=== PATIENT | male | born 1980 | race Caucasian/White ===

== ENCOUNTER 2019-02-21 10:20 | Inpatient (IN) | payer MEDICAID ==
[~2019-02-21] VITALS: Ht 170.2 cm; Wt 57.6 kg
[2019-02-21] MEDS ORDERED: PROZAC (10:27)
[2019-02-21] MEDS ORDERED: QUET50TA5 PO (10:27)
[2019-02-21] MEDS ORDERED: SODIUM CHLORIDE 0.9% 1,000ML IVBOLUS ONE (10:30)
[2019-02-21] MEDS ORDERED: MECLIZINE CHEWABLE 25 MG TAB PO ONE (10:30)
[2019-02-21] MEDS ORDERED: THIAMINE 200 MG in SODIUM CHLORIDE 0.9% 50 ML IV ONE (10:30)
[2019-02-21] MEDS ORDERED: SODIUM CHLORIDE FLUSH 10ML SYR IVF ONE (10:30)
--- NOTE | 2019-02-21 10:31 | NUR ---
PT BIB [facility] FOR "VISUAL CHANGES." PER PT VISUAL CHANGES NOTED YESTERDAY- DIFFICULTY WITH SEEING STRAIGHT AHEAD. NYSTAGMUS AND JAUNDICE NOTED ON PHYSICAL ASSESSMENT. PT STATES HE DRINKS EVERY ONCE IN A WHILE AND BINGE DRINKS WHEN HE DOES. PT STATES HE FELL TWICE YESTERDAY. PT UNSTEADY ON HIS FEET. THIS RN INSTRUCTS PT TO CALL WHEN NEEDING TO AMBULATE. LAST DRINK WAS 2 DAYS AGO- WAS 4-5 DRINKS. PT HAS JAUNDICED SKIN. PT LINDA RESTING ON GURNEY. HAS BEEN SEEN AND ASSESSED BY MD. CONNECTED TO MONITOR. TACHYCARDIC. THIS RN WILL START PIV AND MEDICATE ORDERED.
[2019-02-21] MEDS ORDERED: MECLIZINE CHEWABLE 25 MG TAB ONE (10:42)
--- NOTE | 2019-02-21 10:57 | NUR ---
PIV STARTED. PT MEDICATED PER EMAR. GOING TO CT NOW.
--- NOTE | 2019-02-21 10:58 | NUR ---
PT AWARE OF NEED FOR UA. STATES HE IS UNABLE TO GO AT THIS TIME BUT WILL ATTEMPT TO WHEN HE IS ABLE. Addendum: 02/21/19 at 1100 by DOMINGO PT GOING TO MRI, NOT CT.
[2019-02-21 11:19] LABS: ALANINE AMINOTRANSFERASE 108 U/L (12-78); ALBUMIN 3.1 g/dL (3.4-5.0); ANION GAP 17 mmol/L (5-15); CALCIUM 9.6 mg/dL (8.5-10.1); CHLORIDE 87 mmol/L (98-107); CREATININE 0.94 mg/dL (0.7-1.3)
[2019-02-21 11:22] LABS: ALKALINE PHOSPHATASE 366 U/L (45-117); BILIRUBIN,TOTAL 10.7 mg/dL (0.2-1.0); TOTAL PROTEIN 7.7 g/dL (6.4-8.2)
[2019-02-21 11:24] LABS: BASOPHILS % (AUTO) 0 % (0-1); EOSINOPHILS # (AUTO) 0.06 x10^3/uL (0-0.4); EOSINOPHILS % (AUTO) 1 % (1-7); LYMPHOCYTES # (AUTO) 0.83 x10^3/uL (1-3.4); LYMPHOCYTES % (AUTO) 12 % (22-44); MD SCAN; MEAN CORPUSCULAR HEMOGLOBIN 37.8 pg (27.5-34.5); MEAN CORPUSCULAR HGB CONC 34.1 g/dL (33.2-36.2); MEAN CORPUSCULAR VOLUME 110.7 fL (81-97); MEAN PLATELET VOLUME 9.6 fL (7.4-10.4); MONOCYTES # (AUTO) 0.04 x10^3/uL (0.2-0.8); MONOCYTES % (AUTO) 1 % (2-9); NEUTROPHILS # (AUTO) 5.94 x10^3/uL (1.8-6.8); NEUTROPHILS % (AUTO) 86 % (42-75); PLATELET COUNT 77 x10^3/uL (130-400); RED BLOOD COUNT 3.72 x10^6/uL (4.38-5.82); RED CELL DISTRIBUTION WIDTH 13.5 % (9.4-14.8)
[2019-02-21] MEDS ORDERED: GADOTERATE 7.5 MMOL/15 ML SYR ONE (11:25)
[2019-02-21] MEDS ORDERED: POTASSIUM CHLORIDE 20 MEQ TAB.ER.PRT PO ONE (11:30)
[2019-02-21] MEDS ORDERED: POTASSIUM CHLORIDE 40 MEQ in SODIUM CHLORIDE 0.9% 500 ML IV ONE (11:32)
--- NOTE | 2019-02-21 11:38 | NUR ---
PT BACK FROM MRI. PT MEDICATED PER EMAR. RESTING ON GURNEY. NADN. VSS. AWARE OF POC RE: ADMISSION.
[2019-02-21] MEDS ORDERED: POTASSIUM CHLORIDE 20 MEQ TAB.ER.PRT ONE ×2 (11:42→11:56)
--- NOTE | 2019-02-21 12:10 | NUR ---
PT MEDICATED PER MAR. PT EXPRESSES NO WANTS OR NEEDS AT THIS TIME. FAMILY AT BEDSIDE.
--- NOTE | 2019-02-21 12:34 | NUR ---
PT RESTING ON GURFIOR. VSS. NADN. MEDICATED PER EMAR. DENIES NEEDS AT THIS TIME.
[2019-02-21] MEDS ORDERED: hydrALAzine 20 MG/ML, 1ML IVPush PRN (13:00)
[2019-02-21] MEDS ORDERED: OXYcodone IR 5MG TABLET PO PRN (13:00)
[2019-02-21] MEDS ORDERED: ONDANSETRON ODT 4 MG PO PRN (13:00)
[2019-02-21] MEDS ORDERED: morphine SULFATE 10 MG/ML, 1ML IVPush PRN (13:00)
[2019-02-21] MEDS ORDERED: LORazepam 2 MG/ML, 1ML IV PRN ×4 (13:00)
[2019-02-21] MEDS ORDERED: LORazepam 1MG TABLET PO PRN ×4 (13:00)
[2019-02-21] MEDS ORDERED: PROMETHAZINE 25 MG/ML, 1ML IM PRN (13:00)
[2019-02-21] MEDS ORDERED: ONDANSETRON 2MG/ML, 2ML IVPush PRN (13:00)
[2019-02-21] MEDS ORDERED: CYCLOBENZAPRINE 10 MG TABLET PO PRN (13:00)
[2019-02-21] MEDS: NICOTINE 14MG/24 HR PATCH.TD24 TD SCH (13:00)
--- NOTE | 2019-02-21 13:13 | NUR ---
PT RESTING ON GURCOWDEN. DENIES NEEDS. UA COLLECTED. VSS.
[2019-02-21] MEDS ORDERED: DEXTROSE 5% IVPB ONE (13:30)
[2019-02-21] MEDS ORDERED: THIAMINE IVPB ONE (13:30)
[2019-02-21 13:31] LABS: AMPHETAMINE SCREEN, URINE Negative (Negative); BARBITURATE SCREEN, URINE Negative (Negative); BENZODIAZEPINE SCREEN, URINE Negative (Negative); CANNABINOID SCREEN, URINE Negative (Negative); COCAINE SCREEN, URINE Negative (Negative); METHADONE SCREEN, URINE Negative (Negative); OPIATE SCREEN, URINE Negative (Negative)
--- NOTE | 2019-02-21 13:38 | NUR ---
REPORT GIVEN TO RASHMI ACOSTA.
[2019-02-21 14:43] VITALS: BP 109/72
[2019-02-21] MEDS ORDERED: FOLI-17 PO (15:06)
[2019-02-21] MEDS ORDERED: THIA500T PO (15:06)
[2019-02-21] MEDS ORDERED: MAGNESIUM SULFATE PMX 2GM/50ML 50 ML IV ONE (18:00)
[2019-02-21] MEDS: NEUTRA PHOS K 250 MG TABLET PO SCH ×3 (18:27→21:00)
[2019-02-21] MEDS: LORazepam 0.5MG TABLET PO PRN (18:27)
[2019-02-21] MEDS: HEPARIN 5,000 UNITS/ML, 1ML SQ SCH (18:27)
[2019-02-21] MEDS: LORazepam 2 MG/ML, 1ML IV PRN ×2 (19:48→20:52)
[2019-02-21 19:58] VITALS: BP 111/74
[2019-02-21 20:55] VITALS: BP 117/73
[2019-02-21] MEDS: DEXTROSE 5% IV SCH (21:11)
[2019-02-21] MEDS: THIAMINE IV SCH (21:11)
[2019-02-21] MEDS ORDERED: CHLORDIAZEPOXIDE 25 MG CAPSULE PO PRN (22:00)
[2019-02-22 00:44] VITALS: BP 117/75
[2019-02-22] MEDS: LORazepam 2 MG/ML, 1ML IV PRN ×2 (00:48→05:47)
[2019-02-22] MEDS: HEPARIN 5,000 UNITS/ML, 1ML SQ SCH ×3 (02:08→19:10)
[2019-02-22] MEDS: FOLIC ACID IV SCH (02:08)
[2019-02-22] MEDS: MAGNESIUM SULFATE IV SCH (02:08)
[2019-02-22] MEDS: [UNRECOGNIZED DRUG - OTHER] IV SCH (02:08)
[2019-02-22] MEDS: POTASSIUM CHLORIDE IV SCH (02:08)
[2019-02-22 04:08] VITALS: BP 112/79
[2019-02-22] MEDS: THIAMINE IV SCH ×3 (04:38→21:14)
[2019-02-22] MEDS: DEXTROSE 5% IV SCH ×3 (04:38→21:14)
[2019-02-22 04:57] LABS: INTERNATIONAL NORMALIZED RATIO 1.29 (0.93-1.1); PROTHROMBIN TIME 13.4 Seconds (9.6-11.5)
[2019-02-22 05:03] LABS: ALBUMIN 2.2 g/dL (3.4-5.0); ANION GAP 9 mmol/L (5-15); CALCIUM 8.3 mg/dL (8.5-10.1); CHLORIDE 99 mmol/L (98-107)
[2019-02-22 05:09] LABS: ALANINE AMINOTRANSFERASE 76 U/L (12-78); ALKALINE PHOSPHATASE 233 U/L (45-117); BILIRUBIN,TOTAL 11.1 mg/dL (0.2-1.0); CREATININE 0.48 mg/dL (0.7-1.3); TOTAL PROTEIN 5.8 g/dL (6.4-8.2)
[2019-02-22 05:28] LABS: MEAN CORPUSCULAR HEMOGLOBIN 37.3 pg (27.5-34.5); MEAN CORPUSCULAR HGB CONC 34.4 g/dL (33.2-36.2); MEAN CORPUSCULAR VOLUME 108.5 fL (81-97); PLATELET COUNT 79 x10^3/uL (130-400); RED BLOOD COUNT 3.03 x10^6/uL (4.38-5.82); RED CELL DISTRIBUTION WIDTH 13.5 % (9.4-14.8)
[2019-02-22 06:07] LABS: MD YES
[2019-02-22 06:14] LABS: BAND#(MANUAL) 0.13 x10^3/uL; BANDS%(MANUAL) 2 % (0-7); EOS#(MANUAL) 0.26 x10^3/uL (0.0-0.4); EOS% (MANUAL) 4 % (1-7); LYMPHS% (MANUAL) 25 % (22-44); MONOS#(MANUAL) 0.13 x10^3/uL (0.3-2.7); MONOS% (MANUAL) 2 % (2-9); SEG#(MANUAL) 4.29 x10^3/uL (1.8-6.8); SEGS% (MANUAL) 67 % (42-75)
[2019-02-22 06:15] LABS: <PLATELET ESTIMATE> DECREASED; <PLT MORPHOLOGY> NORMAL PLT MORPH; POLYCHROMASIA 1+
[2019-02-22 06:55] VITALS: BP 114/77
[2019-02-22] MEDS ORDERED: MAGNESIUM SULFATE PMX 2GM/50ML 50 ML IV ONE (08:00)
[2019-02-22] MEDS: NEUTRA PHOS K 250 MG TABLET PO SCH ×2 (08:45→21:15)
[2019-02-22] MEDS: CALCIUM CARBONATE 500 MG TAB.CHEW PO SCH ×2 (08:45→21:15)
[2019-02-22] MEDS: MULTIVITS,STRESS FORMULA 1 TABLET PO SCH (08:45)
[2019-02-22] MEDS: ASCORBIC ACID 500 MG TABLET PO SCH ×2 (08:50→18:16)
[2019-02-22] MEDS: NICOTINE 14MG/24 HR PATCH.TD24 TD SCH (13:00)
[2019-02-22 13:48] VITALS: BP 118/81
[2019-02-22] MEDS ORDERED: CHOLECALCIFEROL 400 UNITS/ML ORAL SOL PO SCH (16:30)
[2019-02-22 19:46] VITALS: BP 129/66
[2019-02-23] MEDS: POTASSIUM CHLORIDE IV SCH (01:00)
[2019-02-23] MEDS: FOLIC ACID IV SCH (01:00)
[2019-02-23] MEDS: MAGNESIUM SULFATE IV SCH (01:00)
[2019-02-23] MEDS: [UNRECOGNIZED DRUG - OTHER] IV SCH (01:00)
[2019-02-23] MEDS: LORazepam 0.5MG TABLET PO PRN (01:16)
[2019-02-23 02:58] VITALS: BP 110/72
[2019-02-23] MEDS: HEPARIN 5,000 UNITS/ML, 1ML SQ SCH ×3 (02:59→19:35)
[2019-02-23] MEDS: DEXTROSE 5% IV SCH ×3 (05:23→22:02)
[2019-02-23] MEDS: THIAMINE IV SCH ×3 (05:23→22:02)
[2019-02-23 06:01] LABS: ALBUMIN 2.2 g/dL (3.4-5.0); ANION GAP 10 mmol/L (5-15); CALCIUM 8.3 mg/dL (8.5-10.1); CHLORIDE 99 mmol/L (98-107)
[2019-02-23 06:02] LABS: CREATININE 0.48 mg/dL (0.7-1.3)
[2019-02-23 06:12] LABS: BASOPHILS # (AUTO) 0.07 x10^3/uL (0-0.1); BASOPHILS % (AUTO) 1 % (0-1); EOSINOPHILS # (AUTO) 0.28 x10^3/uL (0-0.4); EOSINOPHILS % (AUTO) 3 % (1-7); LYMPHOCYTES # (AUTO) 2.22 x10^3/uL (1-3.4); LYMPHOCYTES % (AUTO) 25 % (22-44); MD SCAN; MEAN CORPUSCULAR HEMOGLOBIN 37.7 pg (27.5-34.5); MEAN CORPUSCULAR HGB CONC 34.5 g/dL (33.2-36.2); MEAN CORPUSCULAR VOLUME 109.1 fL (81-97); MONOCYTES # (AUTO) 0.33 x10^3/uL (0.2-0.8); MONOCYTES % (AUTO) 4 % (2-9); NEUTROPHILS # (AUTO) 5.96 x10^3/uL (1.8-6.8); NEUTROPHILS % (AUTO) 67 % (42-75); PLATELET COUNT 113 x10^3/uL (130-400); RED CELL DISTRIBUTION WIDTH 13.7 % (9.4-14.8)
[2019-02-23 07:19] VITALS: BP 100/64
[2019-02-23] MEDS: MULTIVITS,STRESS FORMULA 1 TABLET PO SCH (08:08)
[2019-02-23] MEDS: ASCORBIC ACID 500 MG TABLET PO SCH ×2 (08:08→16:54)
[2019-02-23] MEDS: CALCIUM CARBONATE 500 MG TAB.CHEW PO SCH ×2 (08:08→22:02)
[2019-02-23] MEDS: NICOTINE 14MG/24 HR PATCH.TD24 TD SCH (13:00)
[2019-02-23 13:09] VITALS: BP 97/61
[2019-02-23] MEDS ORDERED: MAGNESIUM SULFATE PMX 2GM/50ML 50 ML IV ONE (17:00)
[2019-02-23 19:10] VITALS: BP 126/82
[2019-02-23] MEDS ORDERED: POTASSIUM PHOSPHATE 44 MEQ in SODIUM CHLORIDE 0.9% 500 ML IV ONE (22:00)
[2019-02-24 00:55] VITALS: BP 114/73
[2019-02-24] MEDS: POTASSIUM CHLORIDE IV SCH (01:27)
[2019-02-24] MEDS: [UNRECOGNIZED DRUG - OTHER] IV SCH (01:27)
[2019-02-24] MEDS: MAGNESIUM SULFATE IV SCH (01:27)
[2019-02-24] MEDS: FOLIC ACID IV SCH (01:27)
[2019-02-24] MEDS: HEPARIN 5,000 UNITS/ML, 1ML SQ SCH ×2 (03:27→11:30)
[2019-02-24] MEDS: DEXTROSE 5% IV SCH ×2 (05:30→13:00)
[2019-02-24] MEDS: THIAMINE IV SCH ×2 (05:30→13:00)
[2019-02-24 05:42] LABS: CHLORIDE 100 mmol/L (98-107)
[2019-02-24 05:47] LABS: ANION GAP 11 mmol/L (5-15); CALCIUM 8.5 mg/dL (8.5-10.1); CREATININE 0.44 mg/dL (0.7-1.3)
[2019-02-24 06:10] LABS: MEAN CORPUSCULAR HEMOGLOBIN 37.1 pg (27.5-34.5); MEAN CORPUSCULAR HGB CONC 34.1 g/dL (33.2-36.2); MEAN CORPUSCULAR VOLUME 108.9 fL (81-97); MEAN PLATELET VOLUME 8.9 fL (7.4-10.4); PLATELET COUNT 173 x10^3/uL (130-400); RED BLOOD COUNT 2.83 x10^6/uL (4.38-5.82); RED CELL DISTRIBUTION WIDTH 14.5 % (9.4-14.8)
[2019-02-24 06:12] LABS: MD YES
[2019-02-24 06:57] LABS: BAND#(MANUAL) 0.15 x10^3/uL; BANDS%(MANUAL) 2 % (0-7); BASOS#(MANUAL) 0.15 x10^3/uL (0-0.1); BASOS% (MANUAL) 2 % (0-1); EOS#(MANUAL) 0.15 x10^3/uL (0.0-0.4); EOS% (MANUAL) 2 % (1-7); LYMPH#(MANUAL) 2.03 x10^3/uL (1-3.4); LYMPHS% (MANUAL) 27 % (22-44); METAMYELOCYTES# (MANUAL) 0.08 x10^3/uL (0-0); METAMYELOCYTES% (MANUAL) 1 % (0-1); MONOS#(MANUAL) 0.68 x10^3/uL (0.3-2.7); MONOS% (MANUAL) 9 % (2-9); NRBC % (MANUAL) 3 % (0-1); SEG#(MANUAL) 4.28 x10^3/uL (1.8-6.8); SEGS% (MANUAL) 57 % (42-75)
[2019-02-24 07:00] LABS: ANISOCYTOSIS 1+
[2019-02-24 07:01] LABS: TARGET CELLS 1+
[2019-02-24 07:04] LABS: <PLATELET ESTIMATE> ADEQUATE; <PLT MORPHOLOGY> NORMAL PLT MORPH
[2019-02-24 07:11] VITALS: BP 103/70
[2019-02-24] MEDS: MULTIVITS,STRESS FORMULA 1 TABLET PO SCH (07:53)
[2019-02-24] MEDS: CALCIUM CARBONATE 500 MG TAB.CHEW PO SCH (07:53)
[2019-02-24] MEDS: ASCORBIC ACID 500 MG TABLET PO SCH (07:53)
[2019-02-24 12:32] VITALS: BP 113/80
[2019-02-24] MEDS: NICOTINE 14MG/24 HR PATCH.TD24 TD SCH (13:00)
[2019-02-24] MEDS ORDERED: CHLO25CA9 PO (13:16)
[2019-02-24] MEDS ORDERED: GABA-826 PO (13:16)
[2019-02-24] MEDS ORDERED: FLU VACC QS2019-20 36MOS UP/PF 0.5 ML IM ONE (15:00)
[2019-02-24] MEDS ORDERED: CHOLECALCIFEROL 400 UNITS TABLET PO SCH (16:30)
== END 2019-02-24 14:35 | disposition home or self-care (01) | DRG 91 ==
LOC: ED 11:57 → EDIP 13:06 → 4WST 14:22 → DCLOUNGE 02-24 14:23
PROVIDERS: ADMIT Hospitalist; ATTEND Family Medicine
DX: R27.0 Ataxia, unspecified (principal); E43 Unspecified severe protein-calorie malnutrition; E51.2 Wernicke's encephalopathy; E87.1 Hypo-osmolality and hyponatremia; Z68.1 Body mass index [BMI] 19.9 or less, adult; K70.10 Alcoholic hepatitis without ascites; D69.59 Other secondary thrombocytopenia; G31.2 Degeneration of nervous system due to alcohol; E87.6 Hypokalemia; F17.200 Nicotine dependence, unspecified, uncomplicated; F32.9 Major depressive disorder, single episode, unspecified; H55.00 Unspecified nystagmus; K76.0 Fatty (change of) liver, not elsewhere classified; K82.8 Other specified diseases of gallbladder; F10.10 Alcohol abuse, uncomplicated; Z82.49 Family history of ischemic heart disease and other diseases of the circulatory system
CPT/HCPCS: 36415; 70553; 76700; 80053; 80069; 80074; 80307; 82140; 83735; 84100; 84425; 85025; 85610; 90686; 93005; 96361; 96374; G0378; J1644; J3411; J3475; J3480; A9575; J2060; J7030; J7040